=== PATIENT | female | born 1965 | race Caucasian/White ===

== ENCOUNTER 2020-11-05 19:32 | Emergency (ER) | payer OTHER, BC ==
[2020-11-05] MEDS ORDERED: Bacitracin 1 PK ONE (20:04)
== END 2020-11-05 20:10 | disposition home or self-care (01) ==
LOC: BURERS 19:32
DX: S81.851A Open bite, right lower leg, initial encounter (principal); I10 Essential (primary) hypertension; I25.10 Atherosclerotic heart disease of native coronary artery without angina pectoris; Z79.899 Other long term (current) drug therapy; W54.0XXA Bitten by dog, initial encounter
CPT/HCPCS: 99283

== ENCOUNTER 2021-03-07 08:48 | Outpatient (CLI) | payer BC | END 2021-03-07 08:49 | disposition home or self-care (01) | LOC: BUR/OP 08:48 | PROVIDERS: ATTEND Physician Assistant | DX: S50.12XA Contusion of left forearm, initial encounter (principal); M79.89 Other specified soft tissue disorders ==

== ENCOUNTER 2022-09-24 13:50 | Emergency (ER) | payer BC | END 2022-09-24 15:04 | disposition home or self-care (01) | LOC: BURERS 13:50 | DX: R19.7 Diarrhea, unspecified (principal); R11.2 Nausea with vomiting, unspecified; I10 Essential (primary) hypertension; Z79.899 Other long term (current) drug therapy | CPT/HCPCS: 74176 ==